=== PATIENT | male | born 1965 | race African-American/Black ===

== ENCOUNTER 2019-03-17 14:52 | Emergency (ER) | payer OTHER ==
[~2019-03-17] VITALS: Ht 165.1 cm; Wt 81.6 kg
[2019-03-17 15:07] VITALS: BP 166/92
--- NOTE | 2019-03-17 16:44 | NUR ---
Dr. Akbar is evaluating the patient at bedside.
--- NOTE | 2019-03-17 16:50 | NUR ---
54 y/o m presents to ER c/o finger pain to left hand, second digit. No redness or swelling noted. Pain level 6/10 with flexion. Pt denies trauma or injury. Pt awake and alert. Hob elevated, bed in lowest position, bed rail up x1. Allergies: Penicillin Med hx: none
[2019-03-17 17:07] VITALS: BP 143/99
--- NOTE | 2019-03-17 17:07 | NUR ---
Patient discharged with v/s stable. Written and verbal after care instructions given and explained. Patient alert, oriented and verbalized understanding of instructions. Ambulatory with steady gait. All questions addressed prior to discharge. ID band removed. Patient advised to follow up with PMD. Rx of Ibprofen 600mg was given. Patient educated on indication of medication including possible reaction and side effects. Opportunity to ask questions provided and answered.
== END 2019-03-17 17:07 | disposition home or self-care (01) ==
LOC: MED 14:52
DX: M79.645 Pain in left finger(s) (principal); Z88.0 Allergy status to penicillin
CPT/HCPCS: 73140; 99283